=== PATIENT | male | born 1975 | race Caucasian/White ===

== ENCOUNTER 2016-08-10 14:33 | Outpatient (CLI) | payer OTHER ==
[2015-09-23 14:48] VITALS: BP 147/86
[2016-08-10 15:18] LABS: BASOPHILS % 0.4 (0.0-1.5); EOSINOPHILS % 4.6 % (0.0-6.8); MEAN CORPUSCULAR HEMOGLOBIN 29.2 pg (28.0-34.0); MEAN CORPUSCULAR VOLUME 94.7 fl (80.0-100.0); MONOCYTES % 3.2 % (0.0-11.0); NEUTROPHILS # 3.5 # k/uL (1.4-7.7)
[2016-08-10 15:39] LABS: eGFR (African) > 60; eGFR (Non-African) > 60
== END 2016-08-10 14:34 ==
LOC: LAB 14:33
PROVIDERS: ATTEND Physician Assistant
DX: Z51.81 Encounter for therapeutic drug level monitoring (principal); Z79.899 Other long term (current) drug therapy; L30.9 Dermatitis, unspecified
CPT/HCPCS: 36415; 80053; 85025

== ENCOUNTER 2016-10-16 21:21 | Emergency (ER) | payer OTHER ==
[2016-10-16] MEDS ORDERED: Lidocaine 1% 5ml(IM or SUTURE)(PAIN CLINIC) IJ ONE (21:33)
[2016-10-16] MEDS ORDERED: ACETAMINOPHEN 500 MG TABLET PO ONE (21:33)
--- NOTE | 2016-10-16 22:15 | Diagnostic Imaging Report ---
MARIAMA HARRIS (BEST) - ER [facility] [address] [facility] [address] [address] Report Submission Date: Oct 16, 2016 10:12:29 PM CDT Patient Study Name: BETH BUSTOS Date: Oct 16, 2016 9:52:18 PM CDT Modality Type: CT\SR Gender: M Description: CT BRAIN W/O CONTRAST : 71 Institution: [facility] Physician: MARIAMA HARRIS) - ER Head CT without contrast CLINICAL HISTORY: Fall with injury the right side of the head with supraorbital laceration. TECHNIQUE: CT examination of brain is performed in contiguous axial slices without the use of contrast. Sagittal and coronal reconstructions are performed by the technologist. FINDINGS: The 4th ventricle lies in a normal midline position. The ventricles and sulci are prominent for the patient's age. There is a cleft extending from the lateral aspect the left lateral ventricle to the cortical surface of brain consistent with schizencephaly. There is no hypodense or hyperdense mass. Visualized paranasal sinuses and mastoid air cells are clear. There is apparent cavum septum pellucidum although it is not clear that there is a septum present. Falx is evident and there is midline division of the brain. IMPRESSION: Schizencephaly. Questionable cavum septum pellucidum versus absence of the septum. No acute intracranial changes. Electronically signed on Oct 16, 2016 10:12:29 PM CDT by: Liang JEWELL
--- NOTE | 2016-10-16 22:32 | ED Physician Documentation ---
Fall - HISTORIAN Historian: patient, paramedics, other ([facility] RN) - HPI Stated Complaint: fall Chief Complaint: Fall Onset: just prior to arrival Where: home Context: tripped, slipped r: mild Associated Symptoms:: no loss of consciousness Location of Pain/Injury: face, other (right ear) Injury to Right Extremity: none Injury to Left Extremity: none Further Comments: yes (41 year old male patient brought in from [facility] after slipping and falling in the bathroom. NO LOC. Laceration to right ear and ecchymosis over right eye.) - ROS CONST: no problems NEURO: denies: dizziness, anxiety, depression, other MS/SKIN/LYMPH: denies: weakness, numbness, neck pain, back pain, ankle swelling , leg swelling, rash, other EYES/ENT: other (right ear laceration) CVS/RESP: none GI/: denies: nausea, vomiting - PAST HX Past History: other (Mental retardation, CP) Allergies/Adverse Reactions: Allergies Allergy/AdvReac Type Severity Reaction Status Date / Time No Known Drug Allergies Allergy Verified 10/16/16 22:00 - SOCIAL HX Smoking History: non-smoker - FAMILY HX Family History: denies: none - VITAL SIGNS Vital Signs: Vital Signs Temp Pulse Resp BP Pulse Ox 98.4 F 74 16 131/84 95 10/16/16 21:25 10/16/16 21:25 10/16/16 21:25 10/16/16 21:25 10/16/16 21:25 - REVIEWED ASSESSMENTS Nursing Assessment Reviewed: Yes Vitals Reviewed: Yes Procedures Wound Location: face (right ear) Wound Length: 1.5; 1 cm Wound's Depth, Shape: linear Wound Explored: clean Betadine Prep?: No (chlorhexidine) Anesthesia: 1% Lidocaine Volume of Anesthetic: 2 cc Wound Repaired With: sutures Suture Size/Type: 6:0 Number of Sutures: 3 Progress: 1 suture 6.0 ethilon in ear canal; abrasion extends into ear canal; 2x2 placed in ear. 2 sutures to base of ear lobe Edges well approximated; patient tolerated well. Discharge instructions reviewed with RN from [facility]. ED Results Lab/Radiology - Radiology Radiology Impressions: TECHNIQUE: CT examination of brain is performed in contiguous axial slices without the use of contrast. Sagittal and coronal reconstructions are performed by the technologist. FINDINGS: The 4th ventricle lies in a normal midline position. The ventricles and sulci are prominent for the patient's age. There is a cleft extending from the lateral aspect the left lateral ventricle to the cortical surface of brain consistent with schizencephaly. There is no hypodense or hyperdense mass. Visualized paranasal sinuses and mastoid air cells are clear. There is apparent cavum septum pellucidum although it is not clear that there is a septum present. Falx is evident and there is midline division of the brain. IMPRESSION: Schizencephaly. Questionable cavum septum pellucidum versus absence of the septum. No acute intracranial changes. Electronically signed on Oct 16, 2016 10:12:29 PM CDT by: Liang Ferguson - Orders Orders: ED Orders Category Date Time Status CT BRAIN W/O CONTRAST Stat Exams 10/16/16 Completed Acetaminophen [Tylenol Extra Strength] Med 10/16/16 21:33 Discontinued 500 mg PO NOW ONE Lidocaine 1% 5ml(IM or SUTURE) [Xylocaine] Med 10/16/16 21:33 Discontinued 50 mg IJ NOW ONE Fall Physical Exam - Physical Exam General Appearance: mild distress Head: non-tender, no swelling, no obvious injury Eye: LOWELL, EOMI, lids & conjunct. nml ENT: no dental injury, no oral injury, airway nml Resp/CVS: chest non-tender, no ecchymosis, breath sounds nml, no resp. 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 Skin: color nml, no rash, nml palp., dry, other (1.5 CM laceration at attachment of ear lobe to face; laceration 1 cm in inner ear canal.) Extremities: unable to bear weight, other (wheelchair bound) - [place] Coma Score Eyes Open: Spontaneous Speech: Oriented Motor: Obeys Commands Discharge Clincal Impression: Laceration of right ear canal Qualifiers: Encounter type: initial encounter Qualified Code(s): S01.311A - Laceration without foreign body of right ear, initial encounter Laceration of right ear lobe Qualifiers: Encounter type: initial encounter Qualified Code(s): S01.311A - Laceration without foreign body of right ear, initial encounter Fall Qualifiers: Encounter type: initial encounter Qualified Code(s): W19.XXXA - Unspecified fall, initial encounter Referrals: Alin Colbert MD [Primary Care Provider] - 2 Days Additional Instructions: Keep the wound clean and dry until it has healed. You can wash or shower after 24 hours. Do not soak the wound in water and make sure it is dry afterwards (gently pat the area dry with a clean towel). Do not get into a swimming pool, hot tub, flood or river until your stitches are removed. To remove your dressing, gently pull it off. If needed, you can dampen it with water then gently pull it off. Clean the laceration twice a day with hibiclens and rinse with water clean away any scabbed area Apply thin coat of antibiotic ointment after cleaning the wound. Cover with non-adherent bandage if able. If you have pain, take simple pain relief medication such as Tylenol or ibuprofen. If bandages or dressings get wet, they will need to be changed. Call your doctor for any signs of symptom of infection redness, drainage, pain. Keep 2x2 in the ear canal until the bleeding stops. Have your stitches removed at your doctors office in 7-10 days. Condition: Stable Disposition: 01 HOME, SELF-CARE Decision to Admit: NO Decision Time: 22:29
[2016-10-16 22:56] VITALS: BP 133/80
== END 2016-10-16 22:45 | disposition home or self-care (01) ==
LOC: ED 21:21
DX: S01.311A Laceration without foreign body of right ear, initial encounter (principal); W19.XXXA Unspecified fall, initial encounter; Y93.9 Activity, unspecified; Y99.9 Unspecified external cause status
CPT/HCPCS: 12001; 70450; 99284

== ENCOUNTER 2016-11-16 16:58 | Outpatient (CLI) | payer OTHER ==
[2016-11-16 17:23] LABS: BASOPHILS % 0.7 (0.0-1.5); EOSINOPHILS % 3.6 % (0.0-6.8); MEAN CORPUSCULAR HEMOGLOBIN 30.1 pg (28.0-34.0); MEAN CORPUSCULAR VOLUME 95.6 fl (80.0-100.0)
[2016-11-16 17:38] LABS: eGFR (African) > 60; eGFR (Non-African) > 60
== END 2016-11-16 17:00 ==
LOC: LAB 16:58
PROVIDERS: ATTEND Family Medicine
DX: E78.00 Pure hypercholesterolemia, unspecified (principal); Z00.00 Encounter for general adult medical examination without abnormal findings; Z51.81 Encounter for therapeutic drug level monitoring
CPT/HCPCS: 36415; 80053; 80061; 85025

== ENCOUNTER 2016-12-08 17:54 | Emergency (ER) | payer OTHER ==
--- NOTE | 2016-12-08 18:10 | ED Physician Documentation ---
Fall - HISTORIAN Historian: patient - HPI Chief Complaint: General Adult Onset: just prior to arrival, today Where: home Context: slipped, lost balance r: mild Associated Symptoms:: no loss of consciousness Location of Pain/Injury: chest, upper extremity, hip Injury to Left Extremity: forearm, hip Further Comments: yes (Patient was taking a shower and slipped and feel. Has fallen several times in the past related to gait disturbance.) - ROS CONST: no problems MS/SKIN/LYMPH: numbness (LUE). denies: weakness - PAST HX Past History: other (CP) Immunizations: other (Acne rosecea, OA) Allergies/Adverse Reactions: Allergies Allergy/AdvReac Type Severity Reaction Status Date / Time No Known Drug Allergies Allergy Verified 10/16/16 22:00 - SOCIAL HX Smoking History: non-smoker Alcohol Use: none Drug Use: none - FAMILY HX Family History: none - VITAL SIGNS Vital Signs: Vital Signs Temp Pulse Resp BP Pulse Ox 133/80 10/16/16 22:45 - REVIEWED ASSESSMENTS Nursing Assessment Reviewed: Yes Vitals Reviewed: Yes ED Results Lab/Radiology - Radiology Radiology Impressions: Examination: Plain film elbow History: Fall Comparison exams: None provided Findings: 3 views of the elbow demonstrates abnormal contour of the radial head. No definite acute appearing lucency. Narrowing of the articular joint space. No obvious joint effusion. Impression: Abnormal radial head: Chronicity of finding is indeterminate. If there are older exams or history of elbow injury, correlation should be made Examination: CT head without contrast History: Fall Comparison exam: 16 October 2016 Technique: Noncontrast head CT protocol. Findings: Ventricles and sulci are prominent for the patient's age. Cleft extending from the lateral aspect the left lateral ventricle to the cortical surface of brain consistent with schizencephaly. No evidence for parenchymal hemorrhage. No suspicious extra axial fluid collections. Visualized paranasal sinuses and mastoid air cells are clear. Cavum septum pellucidum although it is not clear that there is a septum present. Falx is evident and there is midline division of the brain. Impression: Stable schizencephaly. No acute parenchymal hemorrhage. No significant change when compared to the October 2016 examination. Examination: Plain film forearm History: Trauma Comparison exams: None available Findings: 2 views of the tibia radius and ulna demonstrates normal mineralization. Cortical irregularities involving the radial head. Ulna appears to be intact. No soft tissue abnormality. Impression: Cortical irregularities involving the radial head consistent with fracture. Recommend dedicated elbow imaging. Examination: Plain film hip/pelvis History: Hip discomfort Comparison exams: None provided Findings: 2 views of the pelvis/hip demonstrates migration of the femoral head upwards into the acetabulum. No overt displacement or fracture line. Superior and inferior pubic rami and iliac wing, as visualized, are without gross abnormality. Impression: Congenital malformation. No displaced fracture line on images provided. Examination: Plain film chest/ribs History: Injury Findings: 3 views of the left ribs demonstrates normal cortical margins. No underlying parenchymal irregularity the wall of the. Impression: No displaced rib fracture. Examination: CT cervical spine History: Fall Comparison exams: None provided Technique: CT cervical spine axial imaging with sagittal and coronal reconstruction Findings: Sagittal reconstruction demonstrates normal height of the cervical vertebral bodies. No anterior compression deformity. Mild listhesis of C3 on C4. Anterior osteophytes. Curvature to the left on the coronal reconstruction. Coronal reconstruction does not demonstrate locked or perched facets. No atlantoaxial abnormality. Sagittal view demonstrates moderate posterior displacement of the skull base with regards to C1. Axial imaging obtained from the skull base through T1 the wall Lamina and pedicles are intact. No ossific density within the central canal. No prevertebral soft tissue abnormality. Impression: Skull base C1 displacement. Given patient's other underlying congenital anomalies, chronicity is indeterminate. Correlation with any previous cervical spine series is highly recommended. No evidence for vertebral body fracture. Leftward curvature. Examination: Plain film chest/ribs History: Injury Findings: 3 views of the left ribs demonstrates normal cortical margins. No underlying parenchymal irregularity the wall of the. Impression: No displaced rib fracture. Fall Physical Exam - Physical Exam General Appearance: no acute distress, alert Head: non-tender, no swelling, no obvious injury Neck: non-tender, painless ROM, trachea midline Eye: LOWELL ENT: nml external inspection, no dental injury, no oral injury Resp/CVS: chest non-tender, no ecchymosis, breath sounds nml, no resp. distress , heart sounds nml, rib tenderness (left lateral). No: rib palpable fracture, crepitus, subcutaneous emphysema, splinting Abdomen: soft, no organomegaly, normal bowel sounds, no abdominal bruit, no distension Neuro: CN's nml as tested, sock examiner nml, reflexes nml, sensory deficit (c/o sensory decrease to the entir LUE) Skin: color nml, no rash Joint: limited ROM (contractures to almost every joint), antalgic gait - [place] Coma Score Eyes Open: Spontaneous Speech: Oriented (at baseline) Motor: Obeys Commands Discharge Clincal Impression: Fracture of radial head, left, closed Qualifiers: Encounter type: initial encounter Fracture alignment: nondisplaced Qualified Code(s): S52.125A - Nondisplaced fracture of head of left radius, initial encounter for closed fracture Contusion of hip, left Qualifiers: Encounter type: initial encounter Qualified Code(s): S70.02XA - Contusion of left hip, initial encounter Contusion of rib on left side Qualifiers: Encounter type: initial encounter Qualified Code(s): S20.212A - Contusion of left front wall of thorax, initial encounter Referrals: Alin Colbert MD [Primary Care Provider] - 2 Days Additional Instructions: Keep splint on the elbow until seen by orthopedic physician to determine for sure if he has a fracture to the radial head. Take home pain medication as ordered. Condition: Stable Disposition: 01 HOME, SELF-CARE Decision to Admit: NO Date of Decison to Admit: 12/08/16 Decision Time: 20:15
[2016-12-08 18:20] VITALS: BP 149/83
[2016-12-08] MEDS ORDERED: KETOROLAC TROMETHAMINE 60 MG/2 ML VIAL IM ONE (19:13)
[2016-12-08] MEDS ORDERED: ACETAMINOPHEN 325 MG TABLET PO ONE (20:38)
--- NOTE | 2016-12-08 22:44 | Diagnostic Imaging Report ---
ESTRELLA PAULSON [facility] [address] [facility] [address] Report Submission Date: Dec 08, 2016 7:24:39 PM CDT Patient Study Name: BETH BUSTOS Date: Dec 08, 2016 6:45:48 PM CDT Modality Type: CR Gender: M Description: CHEST : 71 Institution: [facility] Physician: ESTRELLA PAULSON Examination: Plain film chest/ribs History: Injury Findings: 3 views of the left ribs demonstrates normal cortical margins. No underlying parenchymal irregularity the wall of the. Impression: No displaced rib fracture. Electronically signed on Dec 08, 2016 7:24:39 PM CDT by: Fredy JEWELL
--- NOTE | 2016-12-08 22:44 | Diagnostic Imaging Report ---
ESTRELLA PAULSON [facility] [address] [facility] [address] [place] [address]. [address] Report Submission Date: Dec 08, 2016 7:47:15 PM CDT Patient Study Name: BETH BUSTOS Date: Dec 08, 2016 6:37:51 PM CDT Modality Type: CT\SR Gender: M Description: CT C-SPINE W/O CONTRAS : 71 Institution: [facility] Physician: ESTRELLA PAULSON Examination: CT cervical spine History: Fall Comparison exams: None provided Technique: CT cervical spine axial imaging with sagittal and coronal reconstruction Findings: Sagittal reconstruction demonstrates normal height of the cervical vertebral bodies. No anterior compression deformity. Mild listhesis of C3 on C4. Anterior osteophytes. Curvature to the left on the coronal reconstruction. Coronal reconstruction does not demonstrate locked or perched facets. No atlantoaxial abnormality. Sagittal view demonstrates moderate posterior displacement of the skull base with regards to C1. Axial imaging obtained from the skull base through T1 the wall Lamina and pedicles are intact. No ossific density within the central canal. No prevertebral soft tissue abnormality. Impression: Skull base C1 displacement. Given patient's other underlying congenital anomalies, chronicity is indeterminate. Correlation with any previous cervical spine series is highly recommended. No evidence for vertebral body fracture. Leftward curvature. Electronically signed on Dec 08, 2016 7:47:15 PM CDT by: Fredy JEWELL
--- NOTE | 2016-12-08 22:45 | Diagnostic Imaging Report ---
ESTRELLA PAULSON [facility] [address] [facility].[address] [address] Report Submission Date: Dec 08, 2016 7:27:21 PM CDT Patient Study Name: BETH BUSTOS Date: Dec 08, 2016 6:43:17 PM CDT Modality Type: CR Gender: M Description: PELVIS : 71 Institution: [facility] Physician: ESTRELLA PAULSON Examination: Plain film hip/pelvis History: Hip discomfort Comparison exams: None provided Findings: 2 views of the pelvis/hip demonstrates migration of the femoral head upwards into the acetabulum. No overt displacement or fracture line. Superior and inferior pubic rami and iliac wing, as visualized, are without gross abnormality. Impression: Congenital malformation. No displaced fracture line on images provided. Electronically signed on Dec 08, 2016 7:27:21 PM CDT by: Fredy JEWELL
--- NOTE | 2016-12-08 22:46 | Diagnostic Imaging Report ---
ESTRELLA PAULSON [facility] [address] [facility] [address] [place] [address]. [address] Report Submission Date: Dec 08, 2016 7:33:09 PM CDT Patient Study Name: BETH BUSTOS Date: Dec 08, 2016 6:35:39 PM CDT Modality Type: CT\SR Gender: M Description: CT BRAIN W/O CONTRAST : 71 Institution: [facility] Physician: ESTRELLA PAULSON Examination: CT head without contrast History: Fall Comparison exam: 16 October 2016 Technique: Noncontrast head CT protocol. Findings: Ventricles and sulci are prominent for the patient's age. Cleft extending from the lateral aspect the left lateral ventricle to the cortical surface of brain consistent with schizencephaly. No evidence for parenchymal hemorrhage. No suspicious extra axial fluid collections. Visualized paranasal sinuses and mastoid air cells are clear. Cavum septum pellucidum although it is not clear that there is a septum present. Falx is evident and there is midline division of the brain. Impression: Stable schizencephaly. No acute parenchymal hemorrhage. No significant change when compared to the October 2016 examination. Electronically signed on Dec 08, 2016 7:33:09 PM CDT by: Fredy JEWELL
--- NOTE | 2016-12-08 22:46 | Diagnostic Imaging Report ---
ESTRELLA PAULSON [facility] [address] [facility].[address] [address] Report Submission Date: Dec 08, 2016 7:20:50 PM CDT Patient Study Name: BETH BUSTOS Date: Dec 08, 2016 6:52:47 PM CDT Modality Type: CR Gender: M Description: UPPER EXTREMITY : 71 Institution: [facility] Physician: ESTRELLA PAULSON Examination: Plain film forearm History: Trauma Comparison exams: None available Findings: 2 views of the tibia radius and ulna demonstrates normal mineralization. Cortical irregularities involving the radial head. Ulna appears to be intact. No soft tissue abnormality. Impression: Cortical irregularities involving the radial head consistent with fracture. Recommend dedicated elbow imaging. Electronically signed on Dec 08, 2016 7:20:50 PM CDT by: Fredy JEWELL
--- NOTE | 2016-12-08 22:47 | Diagnostic Imaging Report ---
ESTRELLA PAULSON [facility] [address] [facility].[address] [address] Report Submission Date: Dec 08, 2016 7:51:50 PM CDT Patient Study Name: BETH BUSTOS Date: Dec 08, 2016 7:25:08 PM CDT Modality Type: CR Gender: M Description: UPPER EXTREMITY : 71 Institution: [facility] Physician: ESTRELLA PAULSON Examination: Plain film elbow History: Fall Comparison exams: None provided Findings: 3 views of the elbow demonstrates abnormal contour of the radial head. No definite acute appearing lucency. Narrowing of the articular joint space. No obvious joint effusion. Impression: Abnormal radial head: Chronicity of finding is indeterminate. If there are older exams or history of elbow injury, correlation should be made. Electronically signed on Dec 08, 2016 7:51:50 PM CDT by: Fredy JEWELL
== END 2016-12-08 20:55 | disposition home or self-care (01) ==
LOC: ED 17:54
DX: S52.125A Nondisplaced fracture of head of left radius, initial encounter for closed fracture (principal); S70.02XA Contusion of left hip, initial encounter; S20.212A Contusion of left front wall of thorax, initial encounter; W19.XXXA Unspecified fall, initial encounter; Y93.9 Activity, unspecified; Y99.9 Unspecified external cause status
CPT/HCPCS: 70450; 71100; 72125; 73070; 73090; 96372; 99283; J1885

== ENCOUNTER 2017-01-28 15:10 | Outpatient (CLI) | payer OTHER ==
[2017-01-28 15:27] LABS: BASOPHILS % 0.4 (0.0-1.5); MEAN CORPUSCULAR HEMOGLOBIN 29.3 pg (28.0-34.0); MEAN CORPUSCULAR VOLUME 91.7 fl (80.0-100.0); MONOCYTES % 6.6 % (0.0-11.0); NEUTROPHILS # 3.5 # k/uL (1.4-7.7)
[2017-01-28 16:25] LABS: eGFR (African) > 60; eGFR (Non-African) > 60
== END 2017-01-28 15:11 ==
LOC: LAB 15:10
PROVIDERS: ATTEND Physician Assistant
DX: L30.9 Dermatitis, unspecified (principal); Z79.899 Other long term (current) drug therapy
CPT/HCPCS: 36415; 80053; 85025

== ENCOUNTER 2017-06-10 14:26 | Outpatient (CLI) | payer OTHER ==
[2017-06-10 14:46] LABS: BASOPHILS % 0.5 (0.0-1.5); EOSINOPHILS % 3.9 % (0.0-6.8); MEAN CORPUSCULAR HEMOGLOBIN 30.1 pg (28.0-34.0); MEAN CORPUSCULAR VOLUME 94.1 fl (80.0-100.0); MONOCYTES % 8.2 % (0.0-11.0)
[2017-06-10 15:25] LABS: eGFR (African) > 60; eGFR (Non-African) > 60
== END 2017-06-10 14:28 ==
LOC: LAB 14:26
PROVIDERS: ATTEND Physician Assistant
DX: L20.84 Intrinsic (allergic) eczema (principal); Z79.899 Other long term (current) drug therapy
CPT/HCPCS: 36415; 80053; 85025

== ENCOUNTER 2017-11-22 14:36 | Outpatient (CLI) | payer OTHER ==
--- NOTE | 2017-11-22 15:49 | Diagnostic Imaging Report ---
SHAAN CASTELLANOS [facility] [address] [facility] [address] [address] Report Submission Date: Nov 22, 2017 3:42:29 PM CDT Patient Study Name: BETH BUSTOS Date: Nov 22, 2017 2:53:57 PM CDT Modality Type: DX Gender: M Description: UPPER EXTREMITY : 71 Institution: [facility] Physician: SHAAN CASTELLANOS 2 views of the left forearm History: LIPOMA OF LEFT FOREARM (Hx) / ITS.REASON lipoma of left forearm Comparison: December 08, 2016 Deformity of the radial head is again noted. In the interim there is a fracture of the distal ulnar diaphysis with callus formation, the fracture line is evident. Impression: 1. Deformity of the radial head is again noted, ? due to prior fracture 2. Distal ulnar diaphyseal fracture with callus formation seen in the interim between the two studies, fracture line is still evident 3. Consider MRI evaluation to evaluate provided history of lipoma of the left forearm. Electronically signed on Nov 22, 2017 3:42:29 PM CDT by: Suzan JEWELL
== END 2017-11-22 14:38 ==
LOC: RAD 14:36
PROVIDERS: ATTEND Family Medicine
DX: D17.22 Benign lipomatous neoplasm of skin and subcutaneous tissue of left arm (principal)
CPT/HCPCS: 73090

== ENCOUNTER 2018-01-07 16:53 | Emergency (ER) | payer OTHER ==
--- NOTE | 2018-01-07 17:33 | ED Physician Documentation ---
General Adult - HPI Timing: better Further Comments: yes (Patient was felt to be doing well this AM. Last BM was today and was normal. No blood reported. Patient denies any nausea or vomiting. Has developed a fever up to 101.4 today and then started to complain of some LLQ abd api. No known history of diverticulitis. Patient has not had any urinary sympotms. Labs show some mild elevation of LFT which is new, some hyponatremia.) - ROS GI/: abdominal pain. 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 Temp was 101.4. Given tylenol at that time. When brought to ER, said he had pain LLQ; worse with cough. Has had wet cough for a month. On cetirizine and mucinex for this. No other modifying factors or associated signs. - ROS CONST: fever - PAST HX Past History: other (cerebral palsy, GERD, MR) Surgeries/Procedures: other (ortho) - SOCIAL HX Smoking History: non-smoker - FAMILY HX Family History: No - VITAL SIGNS Vital Signs: Vital Signs Temp Pulse Resp BP Pulse Ox 149/83 12/08/16 18:07 - REVIEWED ASSESSMENTS Nursing Assessment Reviewed: Yes Vitals Reviewed: Yes <DAVID ODOM - Last Filed: 01/11/18 19:45> - PAST HX Allergies/Adverse Reactions: Allergies Allergy/AdvReac Type Severity Reaction Status Date / Time No Known Drug Allergies Allergy Verified 01/07/18 17:56 Home Medications: Ambulatory Orders Medication Instructions Recorded Guaifenesin [Mucinex] 600 mg PO D 01/07/18 RX: Albuterol Sulfate [Ventolin 1 appl INH BID 01/07/18 HFN] RX: Gabapentin [Neurontin] 300 mg PO D 01/07/18 RX: Oxybutynin Chloride [Ditropan] 5 mg PO TID 01/07/18 Progress - Progress Progress: 1905 Patient is still complaining of some LLQ pain. Denies any nausea or vomiting. No other complaints voiced at this time. Exam: Lungs are clear at this time. CV: RRR. Abd: soft, some mild tenderness to the LLQ area, no guarding or rebound tenderness, no masses noted. No hep atomegally noted. Will get CT 20:55 Nausea improved. WBC 650. CT scan almost ready to be done. 22:34 Awaiting [facility] to call back 23:34 Urology accepting 23:50 Hospitalist accepted patient, pain starting to come back will give Fentanyl <Med Fatima - Last Filed: 01/07/18 23:56> - Progress Progress: Report Submission Date: Jan 07, 2018 6:46:28 PM CDT Patient Study Name: BETH BUSTOS Date: Jan 07, 2018 6:12:24 PM CDT Modality Type: DX Gender: M Description: ABDOMEN : 71 Institution: [facility] Physician: DAVID ODOM - CLAIRE Abdominal KUB Clinical history: Left lower quadrant pain Findings: There are gas distended loops of small bowel measuring up to 3.2 cm. Gas is seen in the right colon and sigmoid colon. This most compatible with a partial small bowel obstruction. Followup is recommended. Impressions: Findings compatible with partial small bowel obstruction. CT abdomen or followup plain film is recommended as clinically indicated Electronically signed on Jan 07, 2018 6:46:28 PM CDT by: Arun Pardo Report Submission Date: Jan 07, 2018 6:44:35 PM CDT Patient Study Name: BETH BUSTOS Date: Jan 07, 2018 6:05:32 PM CDT Modality Type: DX Gender: M Description: CHEST : 71 Institution: [facility] Physician: DAVID ODOM Portable view chest Clinical history: Left lower quadrant pain Findings: The heart size is mildly enlarged. Pulmonary vasculature is normal. No pleural effusion, pneumothorax or alveolar consolidation. Impression: Mild cardiomegaly Electronically signed on Jan 07, 2018 6:44:35 PM CDT by: Arun Pardo [id number], care to Dr. Fatima <LEIDAVID - Last Filed: 01/11/18 19:45> ED Results Lab/Radiology - Lab Results Lab Results: Lab Results 01/07/18 17:45 Sodium 128 mmol/L L mmol/L (136-145) Potassium 4.0 mmol/L mmol/L (3.5-5.1) Chloride 96 mmol/L L mmol/L (98-107) Carbon Dioxide 25 mmol/L mmol/L (22-30) BUN 20 mg/dL mg/dL (9-20) Creatinine 1.00 mg/dL mg/dL (0.66-1.25) Estimated Creat Clear 79 Est GFR ( Amer) > 60 (60 - ) Est GFR (Non-Af Amer) > 60 (60 - ) Glucose 104 mg/dL mg/dL (74-106) Calcium 7.9 mg/dL L mg/dL (8.4-10.2) Total Bilirubin 1.3 mg/dL mg/dL (0.2-1.3) AST 66 U/L H U/L (15-46) ALT 71 U/L H U/L (13-69) Alkaline Phosphatase 164 U/L H U/L (38-126) Total Protein 5.7 g/dL L g/dL (6.3-8.2) Albumin 2.8 g/dL L g/dL (3.5-5.0) - Radiology Radiology Impressions: T of the abdomen and pelvis with contrast CLINICAL HISTORY: Left lower quadrant pain. Contrast administered: 96 mL of Omnipaque 300. TECHNIQUE: CT of the abdomen and pelvis is performed with oral and intravenous administration of contrast. Sagittal and coronal reconstructions are performed by the technologist. FINDINGS: There is small right pleural effusion. Lung bases are free of coalescent infiltrate. The spleen is enlarged. Liver demonstrates normal attenuation without focal defect. The gallbladder is normally distended. There are multiple bilateral intrarenal calculi and bilateral renal cysts. There are 2 adjacent left ureteral calculi at the L5-S1 level with the larger measuring 1 cm in size. There is resulting left obstructive uropathy. There is no evident right ureteral calculus or bladder calculus. There is accentuation of the nor mal lumbar lordosis. There is an old compression fracture of T12. Bladder is unremarkable. Gas and stool are present in the colon. Appendix is visualized and is within normal limits. Small bowel is unremarkable. IMPRESSION: 2 left ureteral calculi with left obstructive uropathy. Bilateral intrarenal calculi and renal cysts. Splenomegaly. Old compression fracture of T12. Accentuated lumbar lordosis. - Orders Orders: ED Orders Category Date Time Status ABDOMEN 1VIEW [RAD] Stat Exams 01/07/18 Taken CHEST 1VIEW [RAD] Stat Exams 01/07/[address] ABD & PELVIS W/ CON Stat Exams 01/07/18 Ordered CBC REF Routine Lab 01/07/18 17:48 Received CBC/PLATELET/DIFF Routine Lab 01/07/18 Ordered CMP Routine Lab 01/07/18 17:45 Completed LACTATE Stat Lab 01/07/18 Ordered LIPID PROFILE Routine Lab 01/07/18 Ordered UA [URINALYSIS] Routine Lab 01/07/18 Ordered Ibuprofen [Advil] Med 01/07/18 17:37 Discontinued 400 mg PO NOW ONE Ipratropium/Albuterol Sulfate [Duoneb] Med 01/07/18 18:36 Discontinued 3 ml NEB NOW ONE <Med Fatima - Last Filed: 01/07/18 23:56> - Orders Orders: ED Orders Category Date Time Status ABDOMEN 1VIEW [RAD] Stat Exams 01/07/18 Ordered CHEST 1VIEW [RAD] Stat Exams 01/07/18 Ordered CBC/PLATELET/DIFF Routine Lab 01/07/18 Ordered CMP Routine Lab 01/07/18 Ordered UA [URINALYSIS] Routine Lab 01/07/18 Ordered <DAVID ODOM - Last Filed: 01/11/18 19:45> General Adult Physical Exam - PHYSICAL EXAM GENERAL APPEARANCE: no distress EENT: eye inspection normal, ENT inspection normal (many absent teeth), pharynx normal, TM's nml NECK: normal inspection. No: lymphadenopathy RESPIRATORY: breath sounds normal, rales (much upper airway noise) CVS: reg rate & rhythm, heart sounds normal ABDOMEN: soft, normal bowel sounds, tenderness (mild, LLQ, not reproducible) BACK: normal inspection SKIN: warm/dry, normal color EXTREMITIES: non-tender, no evidence of injury NEURO: speech/cognition abnml <DAVID ODOM - Last Filed: 01/11/18 19:45> Discharge Decision to Admit: [id number] Date of Decison to Admit: 01/07/18 Decision Time: 23:57 <Med Fatima - Last Filed: 01/07/18 23:56> <DAVID ODOM - Last Filed: 01/11/18 19:45> Clincal Impression: Kidney stone on left side Referrals: Alin Colbert MD [Primary Care Provider] - 2 Days Condition: Stable Disposition: 01 HOME, SELF-CARE
[2018-01-07] MEDS: IBUPROFEN 400 MG TABLET PO ONE (18:07)
[2018-01-07 18:37] LABS: eGFR (Non-African) > 60
[2018-01-07] MEDS: IPRATROPIUM/ALBUTEROL SULFATE 3 ML AMPUL.NEB NEB ONE (19:05)
[2018-01-07] MEDS: ONDANSETRON HCL/PF 4 MG/ 2ML VIAL IVP ONE (19:52)
--- NOTE | 2018-01-07 19:53 | Diagnostic Imaging Report ---
DAVID ODOM [facility] [address] [facility] [address] [address] Report Submission Date: Jan 07, 2018 6:46:28 PM CDT Patient Study Name: BETH BUSTOS Date: Jan 07, 2018 6:12:24 PM CDT Modality Type: DX Gender: M Description: ABDOMEN : 71 Institution: [facility] Physician: DAVID ODOM Abdominal KUB Clinical history: Left lower quadrant pain Findings: There are gas distended loops of small bowel measuring up to 3.2 cm. Gas is seen in the right colon and sigmoid colon. This most compatible with a partial small bowel obstruction. Followup is recommended. Impressions: Findings compatible with partial small bowel obstruction. CT abdomen or followup plain film is recommended as clinically indicated Electronically signed on Jan 07, 2018 6:46:28 PM CDT by: Arun JEWELL
--- NOTE | 2018-01-07 19:53 | Diagnostic Imaging Report ---
DAVID ODOM [facility] [address] [facility] [address] [address] Report Submission Date: Jan 07, 2018 6:44:35 PM CDT Patient Study Name: BETH BUSTOS Date: Jan 07, 2018 6:05:32 PM CDT Modality Type: DX Gender: M Description: CHEST : 71 Institution: [facility] Physician: DAVID ODOM Portable view chest Clinical history: Left lower quadrant pain Findings: The heart size is mildly enlarged. Pulmonary vasculature is normal. No pleural effusion, pneumothorax or alveolar consolidation. Impression: Mild cardiomegaly Electronically signed on Jan 07, 2018 6:44:35 PM CDT by: Arun JEWLEL
[2018-01-07 20:51] LABS: MCH. 29.6 pg (28.0-34.0); MCV 91.9 fL (80.0-100.0)
[2018-01-07] MEDS ORDERED: 0.9 % SODIUM CHLORIDE 1,000 ML IV ONE (21:55)
[2018-01-07] MEDS: 0.9 % SODIUM CHLORIDE 1,000 ML IV SCH (22:04)
[2018-01-07] MEDS: TAMSULOSIN HCL 0.4 MG CAP.ER.24H PO ONE (22:26)
[2018-01-07] MEDS: KETOROLAC TROMETHAMINE 30 MG/1ML VIAL IVP ONE (22:27)
--- NOTE | 2018-01-07 23:23 | Diagnostic Imaging Report ---
ESTRELLA PAULSON [facility] [address] [facility] [address] Report Submission Date: Jan 07, 2018 9:56:26 PM CDT Patient Study Name: BETH BUSTOS Date: Jan 07, 2018 9:20:42 PM CDT Modality Type: CT Gender: M Description: CT ABD PELVIS W/ CON : 71 Institution: [facility] Physician: ESTRELLA PAULSON CT of the abdomen and pelvis with contrast CLINICAL HISTORY: Left lower quadrant pain. Contrast administered: 96 mL of Omnipaque 300. TECHNIQUE: CT of the abdomen and pelvis is performed with oral and intravenous administration of contrast. Sagittal and coronal reconstructions are performed by the technologist. FINDINGS: There is small right pleural effusion. Lung bases are free of coalescent infiltrate. The spleen is enlarged. Liver demonstrates normal attenuation without focal defect. The gallbladder is normally distended. There are multiple bilateral intrarenal calculi and bilateral renal cysts. There are 2 adjacent left ureteral calculi at the L5-S1 level with the larger measuring 1 cm in size. There is resulting left obstructive uropathy. There is no evident right ureteral calculus or bladder calculus. There is accentuation of the normal lumbar lordosis. There is an old compression fracture of T12. Bladder is unremarkable. Gas and stool are present in the colon. Appendix is visualized and is within normal limits. Small bowel is unremarkable. IMPRESSION: 2 left ureteral calculi with left obstructive uropathy. Bilateral intrarenal calculi and renal cysts. Splenomegaly. Old compression fracture of T12. Accentuated lumbar lordosis. Electronically signed on Jan 07, 2018 9:56:26 PM CDT by: Liang JEWELL
[2018-01-08] MEDS: cefTRIAXone SODIUM 1 GM in 0.9 % SODIUM CHLORIDE 100 ML IV ONE (00:30)
[2018-01-08] MEDS: fentaNYL CITRATE/PF 100 MCG/ 2ML AMP IVP ONE (00:30)
[2018-01-08] MEDS: cefTRIAXone SODIUM 1 GM VIAL ONE (00:32)
[2018-01-08] MEDS: 0.9 % SODIUM CHLORIDE 100 ML IV ONE (00:32)
[2018-01-08 02:08] VITALS: BP 113/69
[2018-01-08 06:52] LABS: APPEARANCE,URINE CLEAR (CLEAR); COLOR,URINE YELLOW (YELLOW); OCCULT BLOOD,URINE 3+ (NEGATIVE); PH URINE 6.5 (5.0 - 8.0)
== END 2018-01-08 00:55 | disposition home or self-care (01) ==
LOC: ED 16:53
DX: N20.0 Calculus of kidney (principal)
CPT/HCPCS: 71045; 74018; 74177; 80053; 80061; 81002; 83605; 83690; 85025; 87086; J1885; J2405; J7030; Q9966; 94640; 96365; 96366; 96375; 99284; Q9967

== ENCOUNTER 2018-02-11 18:26 | Emergency (ER) | payer OTHER ==
[2018-02-11] MEDS ORDERED: cefTRIAXone SODIUM 1 GM VIAL IM ONE (19:12)
[2018-02-11] MEDS ORDERED: Lidocaine 1% 5ml(IM or SUTURE)(PAIN CLINIC) IVP ONE (19:29)
--- NOTE | 2018-02-11 19:35 | ED Physician Documentation ---
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 Pt presents to the ED c/o burning with urination x 1 week. Pt has a Hx of nephrolithiasis and is under the care of a urologist. Pt has a hx of chronic UTI. denies other symptoms or complaints - Associated Symptoms Problems Urinating: burning w/ urination Abdominal Pain: suprapubic - ROS CONST: none, fever GI/: problems urinating. denies: nausea, vomiting MS/SKIN/LYMPH: none CVS/RESP: denies: chest pain, shortness of breath, cough EYES/ENT: denies: problems with vision, sore throat, nasal drainage, nasal congestion - PAST HX Past History: other (pancreatits migirane GERD CP intellectual disability) Allergies/Adverse Reactions: Allergies Allergy/AdvReac Type Severity Reaction Status Date / Time methotrexate AdvReac Anaphylaxis Verified 02/11/18 19:23 Home Medications: Ambulatory Orders Medication Instructions Recorded Albuterol Sulfate [Ventolin HFN] 1 appl INH BID 01/07/18 Gabapentin [Neurontin] 300 mg PO D 01/07/18 Guaifenesin [Mucinex] 600 mg PO D 01/07/18 Oxybutynin Chloride [Ditropan] 5 mg PO TID 01/07/18 - SOCIAL HX Smoking History: non-smoker - FAMILY HX Family History: other (unk) - VITAL SIGNS Vital Signs: Vital Signs Temp Pulse Resp BP Pulse Ox 98.5 F 82 18 130/89 96 02/11/18 18:27 02/11/18 19:50 02/11/18 19:50 02/11/18 19:50 02/11/18 19:50 - REVIEWED ASSESSMENTS Nursing Assessment Reviewed: Yes Vitals Reviewed: Yes ED Results Lab/Radiology - Lab Results Lab Results: Lab Results 02/11/18 18:47 Urine Color Joanie (YELLOW) Urine Appearance Cloudy (CLEAR) Urine pH 7.0 (5.0 - 8.0) Ur Specific [place] 1.020 (1.010-1.030) Urine Protein 2+ mg/dL H mg/dL (NEGATIVE) Urine Ketones Negative mg/dL mg/dL (NEGATIVE) Urine Occult Blood 3+ H (NEGATIVE) Urine Nitrite Negative (NEGATIVE) Urine Bilirubin Negative (NEGATIVE) Urine Urobilinogen 1.0 Eu Eu (0.2-1.0) Ur Leukocyte Esterase 1+ H (NEGATIVE) Urine Glucose Negative mg/dL mg/dL (NEGATIVE) - Orders Orders: ED Orders Category Date Time Status UA MACRO DIP ONLY Stat Lab 02/11/18 18:47 Completed URINE CULTURE Stat Lab 02/11/18 18:47 Completed Lidocaine 1% 5ml(IM or SUTURE) [Xylocaine] Med 02/11/18 19:29 Discontinued 2.1 mg IVP NOW ONE cefTRIAXone SODIUM [Rocephin] Med 02/11/18 19:12 Discontinued 1 gm IM NOW ONE Male Genitourinary Problems - EXAM General Appearance: no acute distress, alert Abdomen: tenderness (mild suprapubic). No: guarding, rebound, Rovsing's sign, obturator sign EENT: no signs of dehydration Neck: nml inspection Respiratory: no resp distress CVS: reg rate & rhythm, equal pulses, no murmur, no gallop Back: non-tender Extremities: normal range of motion (pt at baseline-uses motorized w/c), no pedal edema Neuro/Psych: oriented X3 (oriented to person and place-baseline), motor nml (Impairment due to CP-at baseline ), cognition normal (decreased at baseline) Skin: warm/dry, normal color Discharge Clincal Impression: UTI (urinary tract infection) Qualifiers: Urinary tract infection type: site unspecified Hematuria presence: without hematuria Qualified Code(s): N39.0 - Urinary tract infection, site not specified Referrals: Alin Barkley MD [Primary Care Provider] - 2 Days Comments: Cipro 500 mg twice a day for 10 days. Follow up with urology NE seek medical care immediately if difficult to wake, difficulty breathing, feeling faint or fainting, increased rash, or fever not controlled by tylenol/motrin. follow up in [address] barkley for repeat UA and to get urine culture results. UNDERSTAND THAT THIS IS AN EMERGENCY EVALUATION FOR YOUR COMPLAINT AND BY NATURE IS LIMITED AND NOT A SUBSTITUTE FOR ONGOING MEDICAL CARE. EVEN THOUGH TEST RESULTS AND TREATMENT PLAN WERE EXPLAINED THERE MAY BE A NEED FOR ADDITIONAL TESTING TO FULLY DETERMINE THE EXTENT OF YOUR ILLNESS/INJURY/OR CONCERN SO YOU SHOULD CONTACT AND OR ESTABLISH WITH A PRIMARY CARE PROVIDER (OR REFERRAL DOCTOR IF APPLICABLE) FOR AN APPOINTMENT SOON POSSIBLE. Condition: Good Disposition: 01 HOME, SELF-CARE Decision to Admit: NO (n) Date of Decison to Admit: 02/11/18 Decision Time: 19:34
[2018-02-11 19:45] VITALS: BP 130/89
[2018-02-12 07:24] LABS: APPEARANCE,URINE CLOUDY (CLEAR); COLOR,URINE AMBER (YELLOW); OCCULT BLOOD,URINE 3+ (NEGATIVE)
== END 2018-02-11 19:48 | disposition home or self-care (01) ==
LOC: ED 18:26
DX: N39.0 Urinary tract infection, site not specified (principal)
CPT/HCPCS: 81002; 87086; 87186; J0696; 96372; 99283

== ENCOUNTER 2018-03-04 11:15 | Emergency (ER) | payer OTHER ==
--- NOTE | 2018-03-04 11:40 | ED Physician Documentation ---
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 He underwent lithotripsy and right ureter stent placement last Wednesday and is currently on Doxycyline. Urologist is Dr. Toscano at [facility]. Onset: hours (24) Timing: still present Severity: moderate Quality: sharp 6/10 Location: RLQ/suprapubic Last known Well Code/Unknown Code: Known - ROS CONST: denies: fever, sweating EYES/ENT: none CVS/RESP: denies: chest pain, shortness of breath GI/: abdominal pain MS/SKIN/LYMPH: none NEURO/PSYCH: denies: headache - PAST HX Past History: none Other History: none Surgeries/Procedures: none Allergies/Adverse Reactions: Allergies Allergy/AdvReac Type Severity Reaction Status Date / Time methotrexate AdvReac Anaphylaxis Verified 02/11/18 19:23 Home Medications: Ambulatory Orders Medication Instructions Recorded Albuterol Sulfate [Ventolin HFN] 1 appl INH BID 01/07/18 Gabapentin [Neurontin] 300 mg PO D 01/07/18 Guaifenesin [Mucinex] 600 mg PO D 01/07/18 Oxybutynin Chloride [Ditropan] 5 mg PO TID 01/07/18 - SOCIAL HX Smoking History: non-smoker Alcohol Use: none Drug Use: none - FAMILY HX Family History: No - VITAL SIGNS Vital Signs: Vital Signs Temp Pulse Resp BP Pulse Ox 130/89 02/11/18 19:50 - REVIEWED ASSESSMENTS Nursing Assessment Reviewed: Yes Vitals Reviewed: Yes Progress - Progress Progress: [address] Toscano's office, closed for the 1246 Called senior quality control technician Physician for Dr. Toscano, Dr. Yobani Freire. No answer, left message with [employer], [place]. [address] Yobani Freire, Urology senior quality control technician. He states with normal labs, normal creatinine and improved CT scan the pain is likely from the stent. Recommends pain medications and follow up with Dr. Toscano as already scheduled. ED Results Lab/Radiology - Lab Results Lab Results: UA blood 3+, Nitrite neg, Leukocytes 2+ - Radiology Radiology Impressions: CT abdomen and pelvis without contrast History: Hematuria Technique: Images through the abdomen and pelvis were obtained without contrast. Findings: The lung bases, liver, gallbladder, pancreas and adrenal glands are normal. Small hypodense cysts are noted in the spleen. Multiple bilateral renal calculi are present, most consistent with nephrocalcinosis. There is no hydronephrosis or hydroureter on the left. Right internal ureteral stent is present and appears in good position. Large staghorn calculus is noted in the right renal collecting system. There is hydronephrosis on the right. There is no free air or fluid. There is no bowel obstruction. There is significant pelvic tilt. Since 07 January 2018, internal ureteral stent is new. Left ureterolithiasis with urinary obstruction has resolved. Impression: Nephrocalcinosis. Right hydronephrosis with right internal ureteral stent placement. Electronically signed on Mar 04, 2018 12:30:14 PM ORDER PROCESSING SPECIALIST by: Warren Schaeffer - Orders Orders: ED Orders Category Date Time Status CT ABD & PELVIS W/O CON Stat Exams 03/04/18 Ordered CBC/PLATELET/DIFF Routine Lab 03/04/18 Ordered CMP [CMP] Routine Lab 03/04/18 Ordered UA W/MICRO IF INDICATED Routine Lab 03/04/18 11:36 Ordered General Adult Physical Exam - PHYSICAL EXAM GENERAL APPEARANCE: no distress EENT: LOWELL NECK: supple RESPIRATORY: no resp distress, chest non-tender, breath sounds normal CVS: reg rate & rhythm, heart sounds normal ABDOMEN: soft, tenderness (RLQ/suprapubic) BACK: no CVA tenderness SKIN: warm/dry EXTREMITIES: non-tender, other (right upper extremity contracted. All 4 extremities with muscle wasting) NEURO: oriented X3 Discharge Clincal Impression: Pain due to ureteral stent Qualifiers: Encounter type: initial encounter Qualified Code(s): T83.84XA - Pain due to genitourinary prosthetic devices, implants and grafts, initial encounter Referrals: Alin Colbert MD [Primary Care Provider] - 2 Days Comments: 1. Takke pain medication as prescribed by Dr. Toscano 2. Follow up with Dr. Toscano next week as scheduled 3. Take over the counter Senokot S daily while on pain medications 4. Return to the ER for fever >101.0 or increased abdominal pain. Condition: Stable Disposition: 01 HOME, SELF-CARE Decision to Admit: NO Date of Decison to Admit: 03/04/18 Decision Time: 13:03
[2018-03-04] MEDS ORDERED: KETOROLAC TROMETHAMINE 30 MG/1ML VIAL IVP ONE (11:57)
[2018-03-04] MEDS ORDERED: 0.9 % SODIUM CHLORIDE 500 ML IV ONE (11:57)
[2018-03-04 12:12] LABS: BASOPHILS % 0.2 (0.0-1.5); EOSINOPHILS % 1.9 % (0.0-6.8); MONOCYTES % 3.5 % (0.0-11.0)
[2018-03-04 12:13] LABS: NEUTROPHILS # 5.5 # k/uL (1.4-7.7)
[2018-03-04 12:21] LABS: eGFR (Non-African) > 60
[2018-03-04] MEDS ORDERED: HYDROcodone /APAP 5/325 1 EACH TABLET PO ONE (13:10)
--- NOTE | 2018-03-04 13:21 | Diagnostic Imaging Report ---
TAYLOR BAZAN [facility] [address] [facility] [address] [place], [place]. 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 Findings: The lung bases, liver, gallbladder, pancreas and adrenal glands are normal. Small hypodense cysts are noted in the spleen. Multiple bilateral renal calculi are present, most consistent with nephrocalcinosis. There is no hydronephrosis or hydroureter on the left. Right internal ureteral stent is present and appears in good position. Large staghorn calculus is noted in the right renal collecting system. There is hydronephrosis on the right. There is no free air or fluid. There is no bowel obstruction. There is significant pelvic tilt. Since 07 January 2018, internal ureteral stent is new. Left ureterolithiasis with urinary obstruction has resolved. Impression: Nephrocalcinosis. Right hydronephrosis with right internal ureteral stent placement. Electronically signed on Mar 04, 2018 12:30:14 PM COUTURE ALTERATIONS DRESSMAKER by: Warren JEWELL
[2018-03-04 13:39] VITALS: BP 132/81
[2018-03-05 07:36] LABS: COLOR,URINE YELLOW (YELLOW)
[2018-03-05 07:37] LABS: APPEARANCE,URINE CLOUDY (CLEAR); OCCULT BLOOD,URINE 3+ (NEGATIVE); UROBILINOGEN URINE 0.2 Eu (0.2-1.0)
== END 2018-03-04 13:35 | disposition home or self-care (01) ==
LOC: ED 11:15
DX: T83.84XA Pain due to genitourinary prosthetic devices, implants and grafts, initial encounter (principal); Z96.0 Presence of urogenital implants
CPT/HCPCS: 74176; 80053; 81002; 85025; 87086; A9270; J1885; J7060; 96374; 99284; S1016

== ENCOUNTER 2018-07-04 16:19 | Emergency (ER) | payer OTHER ==
--- NOTE | 2018-07-04 16:52 | ED Physician Documentation ---
Male Genitourinary Problems - HISTORIAN Historian: patient, other (caregiver) - HPI Stated Complaint: pain with urination Chief Complaint: Male Genitourinary Problems (Dysuria) Additional Information: Patient is a 43-year-old male that presents to the ER with caregiver with c/o burning with urination that started this morning. Patient has an appointment in July with urology to have kidney stones removed. He denies any flank pain. No fever, chills, nausea, vomiting or diarrhea. Caregiver states that his urine in the ER actually looks better than it did this morning. Patient likes to drink Dr. Daniels- encouraged drinking more fluids such as water. Onset: hours (This morning) Duration: better Context: denies: drug use, lifting Severity: mild Further Comments: no - Associated Symptoms Problems Urinating: blood in urine, discomfort w/ urination, burning w/ urination Last Urinated: 07/04/18 (gave UA in ER) Testicular Pain: none Testicular Swelling: none Penile Pain: No Penile Swelling: No Flank Pain: none Abdominal Pain: suprapubic - Sexual History Sexual History: non-contributory - ROS CONST: denies: recent illness, fever, chills GI/: denies: nausea, vomiting, abdominal pain MS/SKIN/LYMPH: none CVS/RESP: none EYES/ENT: none NEURO/PSYCH: denies: dizziness - PAST HX Past History: bladder infection, kidney stones, other (seasonal allergies, cerebral palsy, osteoarthritis, GERD) Cardiac Disease: none Surgeries/Procedures: lithotripsy, renal stent Immunizations: UTD Allergies/Adverse Reactions: Allergies Allergy/AdvReac Type Severity Reaction Status Date / Time methotrexate AdvReac Anaphylaxis Verified 07/04/18 16:35 Home Medications: Ambulatory Orders Medication Instructions Recorded Gabapentin [Neurontin] 300 mg PO BID 01/07/18 Oxybutynin Chloride [Ditropan] 5 mg PO TID 01/07/18 Baclofen 10 mg PO TID 07/04/18 Ciprofloxacin HCl [Cipro] 500 mg PO BID #20 tablet 07/04/18 Cyanocobalamin [Vitamin B-12] 1,000 mg PO DAILY 07/04/18 Doxepin HCl [Sinequan] 25 mg PO DAILY 07/04/18 Ferrous Sulfate [Iron] 325 mg PO TID 07/04/18 Tamsulosin HCl 0.4 mg PO DAILY 07/04/18 - SOCIAL HX Smoking History: non-smoker Alcohol Use: none Drug Use: none - FAMILY HX Family History: none - VITAL SIGNS Vital Signs: Vital Signs Temp Pulse Resp BP Pulse Ox 97.8 F 61 16 132/72 96 07/04/18 16:19 07/04/18 17:33 07/04/18 17:33 07/04/18 17:33 07/04/18 17:33 ED Results Lab/Radiology - Lab Results Lab Results: + UTI with hematuria - Orders Orders: ED Orders Category Date Time Status URINALYSIS Routine Lab 07/04/18 Ordered Male Genitourinary Problems - EXAM General Appearance: no acute distress, alert Abdomen: non-tender Genitals: nml inspection EENT: eye inspection normal, ENT inspection normal, pharynx normal, no signs of dehydration Neck: nml inspection Respiratory: no resp distress, breath sounds normal CVS: reg rate & rhythm, heart sounds normal, equal pulses Back: non-tender Extremities: non-tender, normal inspection Neuro/Psych: oriented X3, motor nml, sensation nml, mood/affect nml Skin: warm/dry, normal color Discharge Clincal Impression: UTI (urinary tract infection) Prescriptions: Ciprofloxacin HCl [Cipro] 500 mg PO BID #20 tablet Referrals: Kirsten Kirby MD [Primary Care Provider] - 2 Days Additional Instructions: Increase fluid intake (less caffeine-more water) Take Cipro 500 mg by mouth twice a day for 10 days Keep appointment with Urology in July Follow up with PCP as needed Condition: Good Disposition: 01 HOME, SELF-CARE Decision to Admit: NO Decision Time: 17:32
[2018-07-04 17:34] VITALS: BP 132/72
[2018-07-04 22:07] LABS: APPEARANCE,URINE CLEAR (CLEAR); COLOR,URINE RED (YELLOW)
[2018-07-04 22:08] LABS: OCCULT BLOOD,URINE 3+ (NEGATIVE); UROBILINOGEN URINE 0.2 Eu (0.2-1.0)
== END 2018-07-04 17:33 | disposition home or self-care (01) ==
LOC: ED 16:19
DX: N39.0 Urinary tract infection, site not specified (principal); R31.9 Hematuria, unspecified; Z87.442 Personal history of urinary calculi
CPT/HCPCS: 81002; 87086; 99283

== ENCOUNTER 2018-07-06 12:43 | Outpatient (CLI) | payer OTHER ==
--- NOTE | 2018-07-06 20:35 | Diagnostic Imaging Report ---
RAY PAGE [facility] [address] [id number] Report Submission Date: Jul 06, 2018 1:33:54 PM CDT Patient Study Name: BETH BUSTOS Date: Jul 06, 2018 12:57:04 PM CDT Modality Type: US Gender: M Description: US DUPLEX ARTERIAL LE UNILAT : 71 Institution: [facility] Physician: RAY PAGE EXAMINATION: US DUPLEX ARTERIAL LE UNILAT HISTORY: RIGHT FOOT PAIN, COLD RIGHT FOOT COMPARISON: None FINDINGS: The arteries of the right lower extremity are patent and demonstrate normal triphasic waveforms, Doppler color flow, and velocities. IMPRESSION: No evidence of lower extremity arterial stenosis or occlusion. Electronically signed on Jul 06, 2018 1:33:54 PM CDT by: Sumit JEWELL
== END 2018-07-06 12:45 ==
LOC: RAD 12:43
PROVIDERS: ATTEND Nurse Practitioner Family
DX: M79.671 Pain in right foot (principal)
CPT/HCPCS: 93926